=== PATIENT | male | born 1945 | race Caucasian/White ===

== ENCOUNTER 2022-10-31 14:32 | Outpatient (REF) | payer BC, SELFPAY ==
--- NOTE | ~2022-10-31 | XR_ITS ---
EXAMINATION: XR lumbar spine 2-3V CLINICAL INFORMATION: Reason for Exam PAIN. R/O DISC COMPARISON: None TECHNIQUE: 3 views of the lumbar spine FINDINGS: 5 nonrib-bearing lumbar-type vertebral bodies. Vertebral body heights are maintained. Alignment is maintained. Mild multilevel degenerative disc disease with loss of disc space height, facet arthropathy and disc osteophyte complexes. This is worst at L5/S1. Paravertebral soft tissues are unremarkable. XR/XR lumbar spine 2-3V IMPRESSION: Mild spondylosis of the lumbar spine, as above detailed. No significant spondylolisthesis.
--- NOTE | ~2022-10-31 | XR_ITS ---
EXAMINATION: XR HIP, RIGHT CLINICAL INFORMATION: Pain COMPARISON: None TECHNIQUE: Two views of the right hip. FINDINGS: Bones and soft tissues are normal. No fracture. Alignment is anatomic. Hip joint space is maintained. XR/XR hip RT min 2V IMPRESSION: Normal right hip.
== END 2022-10-31 14:33 | disposition home or self-care (01) ==
LOC: HO.RADIR 14:32
PROVIDERS: Visit Provider Internal Medicine
DX: M54.50 Low back pain, unspecified (principal); M25.551 Pain in right hip
CPT/HCPCS: 72100; 73502

== ENCOUNTER 2024-11-29 10:49 | Outpatient (AMB) | payer BC, SELFPAY ==
--- NOTE | 2024-11-29 11:05 | MHC.OFFVIS ---
Vital Signs 11/29/24 11:14 Height 5 ft 10 in Weight 157 lb BMI 22.5 BP 138/76 Blood Pressure Location Rt brachial Position Sitting Pulse 82 Intake Visit Reasons: skin lesion chest wall Intake Note: Patient referred by pcp Dr. Horan for skin lesion on chest. Present for 2m. Patient c/o: enlarging. Denies pain, oozing. Accompanied by: Self / Same As Patient Allergies No Known Allergies Allergy (Verified 11/29/24 11:06) Medication List - Last Reconciled 11/29/24 by Rosalio Urbina MD venlafaxine ER 75 mg PO BEDTIME HPI Comments Details: Patient was presents with a several month history of a right anterior chest wall growth. His increasing in size become more symptomatic. Patient was like to have it removed. No such lesions elsewhere. Chart was reviewed and patient evaluated [facility] Medical History (Updated 11/29/24 @ 11:08 by NJ Herndon) Hx of retinal detachment Cataract fragments in both eyes following surgery Surgical History (Updated 11/29/24 @ 11:39 by Rosalio Urbina MD) History of eye surgery Family History (Updated 11/29/24 @ 11:10 by NJ Herndon) Father Heart failure Mother Kidney failure Social History (Updated 11/29/24 @ 11:10 by NJ Herndon) Alcohol intake: never Patient Tobacco Use Status: Never used Tobacco Physical Exam Vital Signs: Last Vital Signs Pulse 82 11/29/24 11:14 BP 138/76 11/29/24 11:14 BMI result Body Mass Index 22.5 Chest Other: Patient has a roughly 4 x 3 cm mass consistent clinically with a keratoacanthoma Office Procedures Excision Details: Risks, benefits, alternatives of excision of right anterior chest wall mass reviewed with the patient included but not limited to bleeding, infection, recurrence, numbness, pain, scarring the patient wished to proceed. All questions answered. Consent signed. After appropriate positioning, patient underwent 1% lidocaine Betadine prep and a transverse by elliptical incision encompassing the lesion in question to grossly clear margins was uneventfully performed. Specimen side as noted above. Specimen sent to pathology. Wound was irrigated, secured hemostasis, and closed using running subcuticular 3-0 Vicryl suture followed by Steri-Strips and sterile dressings. Patient tolerated procedure well. 09407-rracg/arms/legs 3.1-4cm Procedure code (CPT) selection complete Office Meds lidocaine 1 %-epinephrine 1:100,000 injection solution Performing Provider: Rosalio Urbina MD Performing Location: [facility] [place] [facility] Administered by: Rosalio Urbina MD on 11/29/24 11:38 Dose Route Admin Location Dispensed Lot Number Expiration Date NDC Supervisor Rides 20 mL Infiltration 20 mL Assessment & Plan Assessment & Plan (1) Keratoacanthoma of skin: Code(s): L85.8 - Other specified epidermal thickening Category: Surgical Plan: Patient was been given local wound instructions including avoiding strenuous activities, ice to the wound periodically, Motrin for pain, may shower in 2 days removing only outside dressing, and will see me as directed or p.r.n.. All questions answered. Orders: Orders AMB Excision Today L85.8 - Other specified epidermal thickening Medications: New ibuprofen 800 mg PO Q8H PRN 30 tabs 0RF pain lidocaine-epinephrine 1 %-1:100,000 20 mL Infiltration ONCE 30 mL 0RF L85.8 - Other specified epidermal thickening Coding Level of Care Code New Pt Level 5 (19147) Diagnoses Keratoacanthoma of skin L85.8 CPT Codes Trunk/Arms/Legs - CPT: 40962-rmxcf/arms/legs 3.1-4cm ([id number])
[2024-11-29 11:14] VITALS: BP 138/76; PULSE 82; BMI 22.5
== END 2024-11-29 11:49 | disposition home or self-care (01) ==
PROVIDERS: PCP Internal Medicine; Visit Provider Surgery
DX: D21.3 Benign neoplasm of connective and other soft tissue of thorax (principal); L85.8 Other specified epidermal thickening
CPT/HCPCS: 11403; 99204

== ENCOUNTER 2024-11-29 10:49 | Outpatient (REF) | payer BC, SELFPAY | END 2024-11-29 10:50 | disposition home or self-care (01) | LOC: HO.LNP 10:49 | PROVIDERS: PCP Internal Medicine; Visit Provider Surgery | DX: L85.8 Other specified epidermal thickening (principal) | CPT/HCPCS: 11403; 88304; J2004 ==

== ENCOUNTER 2024-12-06 11:07 | Outpatient (AMB) | payer BC, SELFPAY ==
--- NOTE | 2024-12-06 11:08 | A.OFFVIS_ITS ---
Intake Visit Reasons: 1wk s/p Rt upper chest Intake Note: Patient here s/p WLE fibroma Rt upper chest. Reports incision healing well. Patient c/o: itch along incision. Denies pain, oozing. WLE: 11-29-24 Sales Agent Required: No Accompanied by: Self / Same As Patient Allergies No Known Allergies Allergy (Verified 12/06/24 11:10) HPI Comments Details: Patient was no wound issues or complaints. Pathology is benign. [facility] Medical History (Updated 11/29/24 @ 11:08 by NJ Herndon) Hx of retinal detachment Cataract fragments in both eyes following surgery Surgical History (Updated 12/06/24 @ 11:38 by Rosalio Urbina MD) History of eye surgery Family History (Updated 11/29/24 @ 11:10 by NJ Herndon) Father Heart failure Mother Kidney failure Social History (Updated 11/29/24 @ 11:10 by NJ Herndon) Alcohol intake: never Patient Tobacco Use Status: Never used Tobacco Physical Exam Chest Other: Incision clean dry and intact healing very well. Assessment & Plan Assessment & Plan (1) Visit for wound check: Code(s): Z51.89 - Encounter for other specified aftercare Category: Surgical Plan Patient was been given local instructions, and will otherwise follow-up p.r.n.. All questions answered. Coding Level of Care Code Global (00975) Diagnoses Visit for wound check Z51.89
== END 2024-12-06 11:19 | disposition home or self-care (01) ==
PROVIDERS: PCP Internal Medicine; Visit Provider Surgery
DX: Z51.89 Encounter for other specified aftercare (principal)
CPT/HCPCS: 99024

== ENCOUNTER → 2024-12-06 11:07 | Outpatient (BNVA) | payer BC, SELFPAY | PROVIDERS: PCP Internal Medicine; Visit Provider Surgery ==

== ENCOUNTER 2025-02-08 08:12 | Outpatient (REF) | payer MEDICARE, SELFPAY ==
--- NOTE | ~2025-02-08 | CT_ITS ---
EXAMINATION: CT SOFT TISSUE NECK WITH CONTRAST CLINICAL INFORMATION: Polypoid nasal cavity, deviated nasal septum. COMPARISON: None available. TECHNIQUE: Following the intravenous administration of 65 mL of Omnipaque 350 intravenous contrast, helical imaging was performed in the axial plane with generation of coronal and sagittal reformatted images. This CT examination was performed using dose optimization techniques as appropriate, variously including the following: *Automated exposure control *Adjustment of mA and/or kV according to patient size (this includes techniques or standardized protocols for targeted exams where dose is matched to indication/reason for exam; i.e. extremities or head) *Use of iterative reconstruction technique FINDINGS: Lymph Nodes: -No abnormal lymphadenopathy present in the anterior or posterior cervical chains. Carotid Sheath Structures: -Normal. Salivary Glands: -Normal. Tongue Base/Floor of Mouth: -Normal Mucosal Space: -Mild hypertrophy of the tonsillar pillar soft tissues, without enhancing mass present, likely reactive. -Mucosal space otherwise normal. No lesions evident. Visceral Space: -Thyroid gland: Diffusely enlarged, without discrete nodules seen. -Visceral space otherwise normal. Retropharangeal Space: - Normal. Parapharyngeal Fat Planes: -Normal. Pillow Filler Spaces: -Normal. Anterior Cervical Space: -Normal. Imaged Intracranial Contents: -No mass effect, edema, or abnormal enhancement. Cortical and dural venous sinuses are patent. The skull base is normal. Globes and Orbits: -There are bilateral lens replacements. Globes and orbital contents otherwise normal. Paranasal Sinuses/Mastoids/Tympanic Spaces: -Within the right anterior nasal cavity at the junction of the middle and inferior meatus, abutting the anterior septum, is a small polyp measuring 1.4 x 0.9 x 1.0 cm (AP, TRV, CC) (series 2, image 38). There is mild left nasal septal deviation without spurring. There is a large aerated anna bullosa in the right middle turbinate. Nasal cavity is otherwise well pneumatized. -Minimal polypoid mucosal thickening in the dependent left maxillary sinus. Paranasal sinuses, mastoid air cells, and tympanic spaces are otherwise well pneumatized. Lung Apices and Superior Mediastinal Structures: -There is a 3 mm subpleural nodule in the right lateral upper lobe (series 6, image 114). Lung apices are otherwise clear bilaterally. Superior mediastinal structures are normal. Bony Structures: -No suspicious bone lesions. No fractures. -Normal-appearing TM joints. -There are maxillary dental implants in place. -Advanced degenerative changes of the cervical spine with severe disc space degeneration spanning C2-T1. No acute bony abnormalities identified. CT/CT soft tissue neck w IV con IMPRESSION: 1. Small nasal polyp measuring 1.4 x 0.9 x 1.0 cm in the anterior nasal cavity at the junction of the middle and inferior meati. 2. No significant paranasal sinus disease. Leftward nasal septal deviation without spurring. 3. Mild global thyroid enlargement without discrete nodules seen by CT. 4. No mass or lymphadenopathy within the neck. 5. There is a 3 mm subpleural nodule in the lateral right upper lobe, nonspecific. One-year follow-up recommended only in a high-risk patient. 6. Severe degenerative spondylosis of the cervical spine. Electronically signed by: Shayan Willett MD 02/08/2025 10:32 AM EDT
--- NOTE | ~2025-02-08 | CT_ITS ---
EXAMINATION: CT SINUS WITHOUT CONTRAST CLINICAL INFORMATION: Deviated nasal septum. Polyps of the nasal cavity. COMPARISON: None available. TECHNIQUE: Contiguous axial images through the paranasal sinuses using 2 mm collimation with bone and soft tissue algorithm. Sagittal and coronal reformatted images acquired. This CT examination was performed using dose optimization techniques as appropriate, variously including the following: *Automated exposure control *Adjustment of mA and/or kV according to patient size (this includes techniques or standardized protocols for targeted exams where dose is matched to indication/reason for exam; i.e. extremities or head) *Use of iterative reconstruction technique DLP: 104 mGy centimeter. FINDINGS: Residual IV contrast from the recent CT soft tissue neck. There is a 15 x 10 x 15 mm polypoid soft tissue attenuation extending from the anterior inferior right middle turbinate into the right nasal cavity and abutting the nasal septum and the inferior turbinate. There is a S-shaped nasal septum deviation. There is likely an old deformity of the nasal bones. There is narrowing of nasal questionable/no central mostly on the left side. There is a anna bullosa, right middle turbinate. The paranasal sinuses are well pneumatized. There is mild mucosal thickening, right frontal ethmoid recess, ethmoid air cells and maxillary sinuses. Small retention cysts versus polyp in the anterior inferior left maxillary sinus. No air-fluid levels. The orbits are intact. No masses or fluid collections in the intraconal or extraconal compartments of the orbits. The extraocular muscles are intact. The eyeballs are intact demonstrated status post intraocular lens surgery. The cribriform plate, frontal nasal fovea are intact. The ethmoid artery notch is incomplete fused. No pneumatization of the anterior clinoid processes. No Onodi cell. The intrasinus septum, sphenoid, inserts midline. The cardiac canals are intact. The foramen rotundum and foramen ovale are intact. There is a vidian canal type II, bilaterally. Pneumatization of the left pterygoid recess. Multiple dental implants, maxillary. Tympanic cavities and mastoid cells are aerated. Pneumatized left petrous apex, congenital. Spondylosis C3 and C3-4 levels. Prominent palatine tonsils without abscess. Small accessory parotid glands, bilaterally. CT/CT sinus wo IV con IMPRESSION: 15 x 10 x 15 mm polypoid soft tissue extending from the anterior inferior right middle turbinate into the nasal cavity. Definitive diagnosis by tissue sampling. Mild chronic paranasal sinus disease. Small retention cyst, left maxillary sinus. Probable old traumatic deformity, nasal bones with incomplete narrowing of the nasal nostril/vestibule. S-shaped nasal septal deviation. Electronically signed by: Arthur Potts MD 02/08/2025 10:51 AM EDT
[2025-02-08 08:41] LABS: Blood Urea Nitrogen 40 mg/dL (9-16); Estimated Glomerular Filt Rate > 60
[2025-02-08] MEDS: iohexoL 350 MG/ML 100 ML INFUS..BTL 65 ML IV (10:10)
[2025-02-08 12:45] LABS: Creatinine POC 0.7 mg/dL (0.5-1.4); GFR POC > 60
== END 2025-02-08 08:13 | disposition home or self-care (01) ==
LOC: HO.CT 08:12
PROVIDERS: PCP Internal Medicine; Visit Provider Otolaryngology
DX: R22.1 Localized swelling, mass and lump, neck (principal); J33.0 Polyp of nasal cavity; J34.2 Deviated nasal septum; D37.05 Neoplasm of uncertain behavior of pharynx
CPT/HCPCS: 36415; 70486; 70491; 82565; 84520; Q9967

== ENCOUNTER → 2025-02-08 08:25 | Outpatient (BNV) | payer MEDICARE, SELFPAY | PROVIDERS: PCP Internal Medicine; Visit Provider Radiology Diagnostic Radiology | DX: R91.1 Solitary pulmonary nodule (principal); J33.0 Polyp of nasal cavity | CPT/HCPCS: 70486; 70491 ==

== ENCOUNTER 2025-08-07 11:05 | Outpatient (AMB) | payer MEDICARE, SELFPAY ==
--- NOTE | 2025-08-07 11:17 | A.OFFPC_ITS ---
Vital Signs 08/07/25 11:24 Height 5 ft 9.29 in Weight 156 lb BMI 22.8 BP 130/63 Blood Pressure Location Rt brachial Position Sitting Respiration 14 Pulse 86 Pulse Source Pulse Oximeter Temp 97.6 F Temp Source Temporal Artery Scan Pulse Oximetry (%) 96 Oxygen Delivery Method Room Air Intake Visit Reasons: Establish Care/Dr. Horan Mechanical Striper Required: No Accompanied by: Self / Same As Patient Allergies No Known Allergies Allergy (Verified 08/07/25 11:18) Tobacco use date assessed: 08/07/25 Fall risk assessment: No Falls in past year Last assessed Fall Risk: 08/07/25 Dental Screening Dental Screen Date: 08/07/25 Did you have a dental visit in the last 12 months?: Yes Did you have a dental problem in the last 6 months where you did not have access to dental care?: No Was dental information given to patient?: Patient has dentist (patient has dentures ) [facility] Medical History Hx of retinal detachment Cataract fragments in both eyes following surgery Surgical History History of eye surgery Family History Father Heart failure Mother Kidney failure Social History (Updated 08/07/25 @ 11:35 by NJ Hoang) Housing: House Alcohol intake: current Alcohol intake frequency: does not drink Patient Tobacco Use Status: Never used Tobacco service: No Current occupational status: employed Cognitive needs: No Hearing needs: Yes Vision needs: Yes (rx glasses) Questionnaire PHQ-9 Over the last 2 weeks, how often have you been bothered by any of the following problems? 1. Little interest or pleasure in doing things: not at all 2. Feeling down, depressed, or hopeless: not at all 3. Trouble falling or staying asleep, or sleeping too much: not at all 4. Feeling tired or having little energy: not at all 5. Poor appetite or overeating: not at all 6. Feeling bad about yourself - or that you are a failure or have let yourself or your family down: not at all 7. Trouble concentrating on things, such as reading the newspaper or watching television: not at all 8. Moving or speaking so slowly that other people could have noticed. Or the opposite - being so fidgety or restless that you have been moving around a lot more than usual: not at all 9. Thoughts that you would be better off or of hurting yourself in some way: not at all Total score: 0 Source: Developed by Drs. Nik Stauffer, Darby Marshall, Alexey Toure and colleagues, with an educational kevin from [facility]. Thrive Questionnaire Date Thrive assessed: 08/07/25 I am a: Patient What is your living situation today?: I have a steady place to live Within the past 12 months, did the food you bought not last and you didn't have the money to get more?: Never true Within the past 12 months, did you worry whether your food would run out before you got money to buy more?: Never true Do you have trouble paying for medicines?: No Do you have trouble getting transportation to medical appointments?: No Do you have trouble paying your heating and electricity bill?: No Do you have trouble taking care of your child, family member or friend?: No Do you have trouble with day-to-day activities such as bathing, preparing meals, shopping, managing finances, etc.?: No Are you currently unemployed and looking for a job?: No Are you interested in more education?: No Please select the resources that you would like help with: None THRIVE Score: 0 AUDIT C Alcohol Use Questionnaire (AUDIT-C) 1. How often do you have a drink containing alcohol?: Never 3. How often do you have six or more drinks on one occasion?: Never Total Score: 0 SADIE-7 AMB Questionnaire SADIE-7 Date SADIE - 7 assessed: 08/07/25 Feeling nervous, anxious, or on edge: 3 = Nearly every day Not being able to stop or control worryin = Nearly every day Worrying too much about different things: 3 = Nearly every day Trouble relaxin = Nearly every day Being so restless that it is hard to sit still: 0 = Not at all Becoming easily annoyed or irritable: 3 = Nearly every day Feeling afraid as if something awful might happen: 3 = Nearly every day Total SADIE-7 score (0-4 normal; 5-9 mild; 10-14 moderate; 15-21 severe): 18 Source: Developed by Drs. Nik Stauffer, Darby Marshall, Alexey Toure and colleagues, with an educational kevin from [facility]. Physical exam (Primary Care) Vital Signs: Last Vital Signs Temp 97.6 F 08/07/25 11:24 Pulse 86 08/07/25 11:24 Resp 14 08/07/25 11:24 BP 130/63 08/07/25 11:24 Pulse Ox 96 08/07/25 11:24 Oxygen Delivery Method Room Air 08/07/25 11:24 BMI result Body Mass Index 22.8 Tobacco/Smoking Status: Tobacco use Status Tobacco use date assessed 08/07/25 08/07/25 11:21 Patient Tobacco Use Status Never used Tobacco 08/07/25 11:35 PHQ-9: PHQ-9 Score PHQ-9: Total score 0 08/07/25 11:49 Thrive Assessment: Date of Thrive Assessment Date Thrive assessed 08/07/25 08/07/25 11:21 Office Procedures Flu Questionnaire Does the patient have a severe egg allergy?: No Does the patient have severe life threatening allergies?: No Does the patient have a fever or illness today?: No Has the patient ever had Guillain-[place] Syndrome?: No Has the patient ever had any past reaction to a flu shot?: No Immunizations Fluarix [id number] (PF) 45 mcg (15 mcg x 3)/0.5 mL IM syringe Performing Provider: Chalo Zaragoza MD [facility] [place] [facility] Documented (not given) by: NJ Hoang on 08/07/25 11:37 Reason Not Given: Received Previously Coding Level of Care Code New Pt Level 4 (60671) Complex EM visit Add On G2211 Diagnoses Annual physical exam Z00.00 Assessment & Plan Assessment & Plan (1) Annual physical exam: Code(s): Z00.00 - Encounter for general adult medical examination without abnormal findings Plan: History of Present Illness - The patient is a 80-year-old male presenting to [facility] care and discuss several health concerns. - He reports experiencing burning and dryness in his eyes every night. - He describes a new, intermittent, and irregular urine stream, characterized by occasional hesitancy and a weak flow. - The patient also has a history of chronic constipation and gas for many years, which is managed with Metamucil. - He denies seeing blood in his stool or urine, and a recent Cologuard test was normal. - A colonoscopy was performed a number of years ago. - The patient reports significant issues with frostbite on his hands and feet, consistent with Raynaud's phenomenon. - He had a severe case of frostbite on his feet years ago and was advised to wrap his feet in plastic wrap and wear two layers of socks for insulation, which he finds effective. - He uses expensive, triple-layer gloves for his hands, though he recently experienced skin discoloration after not wearing them in the cold. - He sees an ENT specialist for crystallized fluid in his ears, which causes nausea and dizziness, and takes meclizine as needed. - Current medications include venlafaxine 150 mg daily and lorazepam once daily for sleep, although it is prescribed for three times a day. - He received his flu and COVID-19 vaccines a month ago. 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. - Education: He holds a doctorate in education. - Transportation: He does not drive and uses Uber. Review of Systems - Eyes: Reports burning and dryness nightly. - Neurological: Reports occasional nausea and dizziness, attributed to fluid in the ears. - Gastrointestinal: Reports chronic constipation and gas; denies hematochezia. - Genitourinary: Reports intermittent urinary hesitancy and a weak stream; denies hematuria. - Musculoskeletal/Extremities: Reports frequent frostbite on hands and feet. Physical Exam General: Cooperative and healthy appearing Nutritional Appearance: Well nourished Orientation/consciousness: Patient oriented x3 Limitations: No limitations Head: Normal to inspection General: Appearance normal, both eyes and all related structures Neck: Normal visual inspection Chest: Normal palpation of entire chest wall Respiratory: N ormal respiratory effort Neurology: Patient oriented x3, reports limb problems consistent with Raynaud's phenomenon. Results - Cologuard: Recent test was normal. Plan - Labs: Ordered fasting blood work to check all parameters. - Dry Eyes: A prescription for eye drops will be sent to the pharmacy. - Lower Urinary Tract Symptoms: Will monitor. - Chronic Constipation: Patient to continue using Metamucil as needed. - Raynaud's Phenomenon: Advised patient to wear gloves for protection. - Medications: Venlafaxine 150 mg daily was renewed and sent to the pharmacy. - Medications: Lorazepam will be continued once daily at bedtime for sleep. - Medications: Meclizine will not be refilled at this time as the patient has an adequate supply. Discussion Notes I have reviewed the patient's concerns regarding dry eyes, urinary changes, constipation, and Raynaud's phenomenon. We discussed his current medications, and I have sent a renewal for venlafaxine. We agreed to continue lorazepam at his current dose of once daily for sleep. I will send a new prescription for his dry eyes. I have ordered fasting lab work and provided instructions on how to prepare and where to go. I advised him to continue protecting his hands from the cold to manage the Raynaud's symptoms. I have accepted him as a new patient in my practice. Patient Instructions - Please go for fasting blood work. - Do not eat anything after midnight the night before your blood test. - You may drink water, black coffee, or plain tea before the test. - The lab is located at [address] [place] [address] or at [facility]. - Continue taking venlafaxine 150 mg once daily; a refill has been sent to your pharmacy. - Take lorazepam once a day before you go to sleep. - Try the new prescription eye drops for your dry eyes. - Be sure to wear gloves when outside in the cold to protect your hands. Orders: Orders Influenza [id number] Immunization Today Z23 - Encounter for immunization Complete Blood Count no Diff Today Z00.00 - Encounter for general adult medical examination without abnormal findings Basic Metabolic Panel Today Z00.00 - Encounter for general adult medical examination without abnormal findings Prostate Specific Antigen Scr Today Z00.00 - Encounter for general adult medical examination without abnormal findings Thyroid Stimulating Hormone Today Z00.00 - Encounter for general adult medical examination without abnormal findings Liver Panel Today Z00.00 - Encounter for general adult medical examination without abnormal findings Lipid Panel Today Z00.00 - Encounter for general adult medical examination without abnormal findings Referrals Urology Referral R97.20 - Elevated prostate specific antigen [PSA] Medications: New venlafaxine ER 150 mg PO DAILY 90 caps 1RF olopatadine 0.1% separate doses by at least 6-8 hours 1 drp ophthalmic (eye) BID 5 mL 0RF meclizine 25 mg PO TID 30 tabs 0RF
[2025-08-07 11:24] VITALS: BP 130/63; PULSE 86; RESP 14; TEMP 36.4; O2SAT 96; BMI 22.8
--- OUTSIDE RECORDS SUMMARY | 2025-08-07 14:03 | XMS_ITS | Encounter Summary ---
Author Organization [facility] Address [address] [facility] [address] [place] [address] Phone Care Team Providers Care Goodwill Representative Name Role Phone Dean Horan MD Primary Care Provider [phone]- [phone] Encounter Details Date Type Department Care Team (Late st Contact Info) Description 03/13/2025 Procedure Pass [facility], [address] [address] Social History Tobacco Use Types Packs/Day Years Used Date Smoking Tobacco: Never Assessed Education Answer Date Recorded Are you interested in more education? Not on sheeba e 03/14/2025 Are you concerned about learning? Not on file 03/14/2025 No 03/14/2025 No 03/14/2025 Digital Access Answer Date Recorded No 03/14/2025 No 03/14/2025 Reliable internet access at home? Not on file 03/14/2025 Device with a working camera? Not on file Sex and Gender Information Value Date Recorded Sex Assigned at Not on file Legal Sex Male 6:30 PM EDT Gender Identity Not on file Sexual Orientation Not on file documented as of this encounter Plan of Treatment Not on file documented as of this encounter Visit Diagnoses Not on filedocumented in this encounter Care Teams Goodwill Representative Relationship Specialty Start Date End Date Dean Horan MD [address] [place] [address] PCP - General 07/15/19 documented as of this encounter Additional Source Comments The information contained in this document represents components of the legal health record. It is not the complete legal health record.[facility]
--- OUTSIDE RECORDS SUMMARY | 2025-08-07 14:03 | XMS_ITS | Encounter Summary ---
Author Organization [facility] Address [address] [facility] [address] [place] [address] Phone Care Team Providers Care Special Needs Bus Driver Name Role Phone Dean Horan MD Primary Care Provider [phone]- [phone] Reason for Referral * MRI/CAT Scan - Closed Specialty Diagnoses / Procedures Referred By Contac t Referred To Contact Radiology Diagnoses Dizziness and giddiness SNHL (sensory-neural hearing loss), asymmetrical Procedures MRI Brain CHG MRI BRAIN COMBO CHG MRI BRAIN CHG MRI BRAIN CONTRAST Nik Perea MD [address] [place] [address], [address] [address] Phone: tel: fax: [email or web address] Referral ID Status Reason Start Date Expiration Date Visits Re quested Visits Authorized [id number] Closed 03/14/2025 05/12/2025 1 1 Encounter Details Date Type Department Care Team (Latest Contact Info) Description 03/13/2025 Transcribe Orders Virtual Department [address] [place] [address] Nik Perea MD [address] [facility], [address] [place] [address] [email or web address] Dizziness and giddiness (Primary Dx) Social History Tobacco Use Types Packs/Day Years [...] on file documented as of this encounter Results * MRI BRAIN (INTERNAL AUDITORY CANAL) WITH AND WITHOUT CONTRAST (03/20/2025 10:43 AM EDT) Anatomical Region Laterality Modality Head Magnetic Resonan ce 03/21/2025 7:16 PM EDT Impressions 03/21/2025 9:31 PM EDT No retrocochlear pathology identified. Narrative 03/21/2025 9:31 PM EDT MRI BRAIN (INTERNAL AUDITORY CANAL) WITH AND WITHOUT CONTRAST Referring clinician's provided indication for this examination in [facility]: Outside Radiology Order; dizziness TECHNIQUE: Multi-sequence, multi-planar MRI of the brain including high resolution images of the temporal bones was performed before and after intravenous contrast. COMPARISON: None FINDINGS: Internal Auditory Canals, Cerebellopontine Angles, and Intracranial 7th and 8th Nerve Complexes: No cerebellopontine angle or internal auditory canal mass. No definite abnormal enhancement. Inner Ear Structures: Preserved signal in the labyrinth. No MRI evidence for an inner ear anomaly. No abnormal enhancement or abnormal intrinsic T1 hyperintensity. Brain Parenchyma: Mild scattered foci of T2/FLAIR hyperintensity in the white matter, likely a manifestation of chronic small vessel disease. Prominent susceptibility blooming abnormality in the left cerebellar hemisphere without enhancement, probably represents a benign chronic hemorrhagic lesion (such as a cavernoma, old hemorrhage, or old hemorrhagic infarct). A punctate focus of susceptibility present in the right centrum semiovale, likely an additional chronic microhemorrhage or cavernoma. No evidence of acute space-occupying hemorrhage. No evidence of acute or subacute infarct. No evidence of brain parenchymal mass. Ventricular System and Extra-Axial Spaces: No extra-axial fluid collections. Basal cisterns are patent. No hydrocephalus. Miscellaneous: Pneumatized right middle turbinate. Left maxillary sinus retention cyst. Procedure Note Con Walsh MD - 03/21/2025 MRI BRAIN (INTERNAL AUDITORY CANAL) WITH AND WITHOUT CONTRAST Referring clinician's provided indication for this examination in [facility]:Outside Radiology Order; dizziness TECHNIQUE: Multi-sequence, multi-planar MRI of the brain including highresolution images of the temporal bones was performed before and afterintravenous contrast. COMPARISON: None FINDINGS: Internal Auditory Canals, Cerebellopontine Angles, and Intracranial 7thand 8th Nerve Complexes: No cerebellopontine angle or internal auditorycanal mass. No definite abnormal enhancement. Inner Ear Structures: Preserved signal in the labyrinth. No MRI evidencefor an inner ear anomaly. No abnormal enhancement or abnormal intrinsic [id number]. Brain Parenchyma: Mild scattered foci of T2/FLAIR hyperintensity in thewhite matter, likely a manifestation of chronic small vessel disease.Prominent susceptibility blooming abnormality in the left cerebellarhemisphere without enhancement, probably represents a benign chronichemorrhagic lesion (such as a cavernoma, old hemorrhage, or oldhemorrhagic infarct). A punctate focus of susceptibility present in theright centrum semiovale, likely an additional chronic microhemorrhage orcavernoma. No evidence of acute space-occupying hemorrhage. No evidence ofacute or subacute infarct. No evidence of brain parenchymal mass. Ventricular System and Extra-Axial Spaces: No extra-axial fluidcollections. Basal cisterns are patent. No hydrocephalus. Miscellaneous: Pneumatized right middle turbinate. Left maxillary sinusretention cyst. IMPRESSION: No retrocochlear pathology identified. Nik Perea MD IMG MR HEAD/NECK Final Re sult documented in this encounter Visit Diagnoses Diagnosis Dizziness and giddiness- Primary Dizziness and giddiness documented in this encounter Care Teams Special Needs Bus Driver Relationship Specialty Start Date End Date Dean Horan MD [address] [place] [address] PCP - General 07/15/19 documented as of this encounter Additional Source Comments The information contained in this document represents components of the legal health record. It is not the complete legal health record.[facility]
--- OUTSIDE RECORDS SUMMARY | 2025-08-07 14:03 | XMS_ITS | Data Portability ---
Author Organization [place] [facility] Address [address] [address] Care Team Providers Care Accounts Payable Lead Name Role Phone LYNN MOTLEY Primary Care Provider Assessment No assessment recorded. Plan of Treatment Reminders Order Date Submit Date Provider Last Modified By Organization Details Last Modified Time Details Appointments Establish ed 30 2025 10:00A M JESSICA Carrasco MD Not available Not available Not available Lab None recorded. Referral None recorded. Procedures None recorded. Surgeries None recorded. Imaging MRI, brain + internal auditory canal, w/wo contrast - MRI, BRAIN + INTERNAL AUDITORY CANAL, W/WO CONTRAST 2024 025 [facility], [address] [place] [address], [address], 03/21/2025 21:36:54 Medication Orders None recorded. Patient TargetsNo targets recorded. Patient InstructionsNo instructions recorded. Reason for Referral None Reported. Results Created Date Observation Date Name Description Value Unit Range Abnormal Flag Note LastModifiedBy Organization Detail LastModifiedTime 02/23/2012/12/2024 audio gram No observ ation record ed. [email or web address] [place] [address] Dr Montaño, MARQUISE Bull, [address], 03/13/2025 09:35:34 02/23/20 25 02/08/2025 CT, neck, soft tissu e, w/ contr ast No observ ation record ed. [email or web address] [place] [address] Dr Montaño, MARQUISE Bull, [address], 03/13/2025 09:35:55 02/23/20 25 02/08/2025 CT, sinus es, w/o contr ast No observ ation record ed. [email or web address] [address] Montaño, [place], [address], 03/13/2025 09:36:15 03/21/20 25 03/20/2025 MRI, brain + inter nal audit ory canal , w/wo contr ast No observ ation record ed. [address], [address], 03/23/2025 10:52:32 06/20/20 25 03/20/2025 MRI, brain + inter nal audit ory canal , w/wo contr ast No observ ation record ed. [email or web address] [facility] [address] [place] [address], [address], 06/20/2025 11:26:42 Result Notes None recorded. Problems Name Problem SNOMED Code Status Onset Date Resolution Date Notes Provider Name and Address Organization Details Recorded Time Dizziness and giddiness 611844598 Active 025 JESSICA Carrasco MD [address] [place] [address], [phone], [facility] 5 09:55:01 Polyp of nasal cavity and/or nasal sinus 160353033 Active 025 JESSICA Carrasco MD [address] [place] [address], [phone], [facility] 5 09:55:08 Bleeding from nose 319236494 Active 025 JESSICA Carrasco MD [address] [place] [address], [phone], [facility] - [facility] 5 09:55:13 Problem Notes None recorded. Procedures Surgical History Date Name Laterality Status Provider Name and Address Organization Details Recorded Time 5 JMSNasal/Sinus Endoscopy-DEBR IDEMENT__RIGHT __JMS completed JESSICA CRAWFORD MD [address] [facility],[address], [address], [place] - [facility] 06/19/2025 16:38:32 5 Epistaxis Simple Nasal Cautery Right completed JESSICA CRAWFORD MD 100 [facility],[address], [address], [place] - [facility] 03/13/2025 10:10:12 5 NasalEndoscopy _DP completed JESSICA CRAWFORD MD [address] [facility],[address], [address], [place] - [facility] 03/13/2025 09:55:49 Imaging Results None recorded. Procedure Notes None recorded. Medical Equipment None Reported. Vitals Date Recorded Body height Body mass index (BMI) Body weight Provider Name and Address Organization Details Last Updated DateTime 03/13/2025 177.8 cm 22.7 kg/m2 56208.59 g Gerry Carreon [place] [facility] 03/13/2025 09:32:21 Date Recorded Body height Body mass index (BMI) Body weight Provider Name and Address Organization Details Last Updated DateTime 06/19/2025 177.8 cm 23 kg/m2 86836.78 g Gerry Carreon [place] [facility] 06/19/2025 15:40:06 Social History Question Answer Notes LastModified by Organizat ion Details LastModified Time Tobacco Smoking Status Never Smoker Gerry monoey [place] - [facility] 03/13/2025 09:28:30 What Type Of Aircraft Hydraulic Equipment Mechanic Do You Use? None Information not available 03/13/2025 Do You Have Any Pets? Yes Information not available 03/13/2025 Are You Passively Exposed To Smoke? No Information not available 03/13/2025 Are There Any Smokers In Your House? No Information not available 03/13/2025 Sex: Unknown Functional Status Question Answer Note LastModified by Organization Details LastModified Time Do you use any illicit or recreational drugs? No Information not available 03/13/2025 Do you or have you ever used any other forms of tobacco or nicotine? No Information not available 03/13/2025 What is your level of alcohol consumption? None Information not available 03/13/2025 What type of noise exposure are you exposed to? noExposureToExcessiveNoise Infor mation not available 03/13/2025 Mental Status None recorded. Family History Nothing Reported. Medical History Condition Response Allergies/Hayfever Y Heart Problems N Anxiety Y Tonsil Infections N Emphysema N Migraines N Thyroid Problems N Depression Y COPD N Developmental Delay N Glaucoma N Nasal or Sinus Problems Y Anemia N Immune System Disorder N Anesthesia Complications N Heart Attack ([place]) N Other Skin Condition N Diabetes N Rhinitis N Bleeding Disorder Y Food Allergy N Hearing Loss N Arthritis Y Hyperlipidemia N Cancer N Stroke N Dementia N Nasal polyps Y Asthma N Sleep Disorder N High Cholesterol N GERD/Reflux N Headaches Y Fibromyalgia N Hypertension N Speech Delay N Kidney Disease N Past Encounters Encounter ID Performer Location Encounter Start Date Encounter Closed Date Diagnosis/Indication Diagnosis SNOMED-CT Code Diagnosis ICD10 Code Diagnosis IMO Codes Diagnosis Note [id number] JESSICA CRAWFORD MD [facility] [address] [address] 03/13/2025 09:15:31 03/13/2025 10:08:20 Dizziness and giddiness 501234054 R42 80063 His dizziness has improved but he has asymmetric hearing loss worse on the right side. I will obtain an MRI IAC to exclude retrocochl ear pathology. This may also visualize his unilateral right sided nasal polyp. We will have him follow-up to review. Polyp of n harrison cavity and/or nasal sinus 863152157 J33.9 07649 He has a unilateral polyp on the right. I discussed performing a biopsy at a future visit. He is more bothered by his epistaxis so we cauterized the right septum today. We will reassess his nasal polyp at the next visit. It was well seen on nasal endoscopy. It seems to be coming from the middle meatus. I was not able to see a polyp on the left side. The nasopharyn x was clear and there were no nasopharyn geal lesions. I will also request his CT sinus be put on [employer] so that I can view the images. Bleeding from nose 989[address] 6005 R04.0 2558 A vessel was seen in Little's area on exam which was amenable to silver nitrate nasal cautery. The was cauterized without complicati on after written consent. I discussed the risks, benefits, and alternativ es to control of epistaxis with chemical (silver nitrate) cautery including: Pain, septal perforatio n, scar formation in the nose, continued bleeding despite the procedure, and alteration in sense of smell. The patient and family understand the risks and like to proceed. We discussed the importance of nasal moisture preventing nosebleeds . Specifical ly we discussed using a saline spray daily, humidifier , and using vaseline with a finger at night applied to the septum. If there is an active bleed, I recommende d using Afrin and demonstrat ed applying pressure to the soft part of the nose. The patient understand s to not use Afrin if he does not have an active bleed. If there is continued bleeding I asked the patient to call and we will consider additional nasal cautery at follow up. [id number] JESSICA CRAWFORD MD [facility] on [address] [place] [phone] 06/19/2025 15:18:21 06/19/2025 16:34:24 Dizziness and giddiness [id number] R42 56010 stable recommend observatio n Polyp of n harrison cavity and/or nasal sinus 101281989 J33.9 14128 I performed a nasal endoscopic biopsy of the right nasal polyp today I personally reviewed his MRI which did not show any encephaloc tino. I would like to confirm this is a benign polyp. He is asymptomat ic and he is not interested in surgery unless it is absolutely necessary. He tolerated this well. Bleeding from nose 36240 6005 R04.0 2558 Recommend observatio n as he had not had no recent bleeding. Health Concerns Section Related Observation LastModified by Organization Detai ls LastModified Time None Recorded Concern Status LastModified by Organization Details LastModified Time None Recorded Advance Directives Directive None Recorded Payers Insurance Date Sequence Insurance Name Policy Number Policy Block Covered Member ID Block Member ID Guarantor Name 03/13/2025 1 [place] [employer] Ashish Chacon [id number] Ashish Fullereld 03/10/2025 1 [place] Ashish Fullereld [id number] Ashish Chacon 06/19/2025 1 [place]MED[place] PPO) [id number] Ashish Milian Ines [id number] Ashish Milian Ines 03/13/2025 1 [place] [id number] Ashish Milian Ines [id number] Ashish Milian Ines 03/03/2025 1 [place] Ashish Fullereld [id number] Ashish Milian Ines 03/13/2025 2 [place] Ashish Milian Ines [id number] Ashish Milian Ines Notes Date Note Type Note Provider Name and Address Organization Details Recorded Time 03/13/2025 text/html ROS as noted in the HPI He presented to Dr. Sow with dizziness. 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 His dizziness has become more mild. He is no longer having room spinning vertigo. A month ago he had room spinning vertigo for 15 minutes with vomiting. A CT sinus 02/08/25 was obtained which showed a right nasal polyp and anna bullosa. He reports bilateral frontal and bilateral maxillary sinus pressure. Mild opacification was also seen. He takes estela D every day. A lung nodules was also seen and he reports his PCP is following this up. He has had right epistaxis (3 episodes in the last week). He was cauterized by his PCP. He is not on blood thinners. JESSICA CRAWFORD MD [address] [place] [address], [place], [address], [facility] 03/13/2025 10:10:49 06/19/2025 text/html ROS as noted in the HPI He presented to Dr. Sow with dizziness. 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 His dizziness has become more mild. We obtained an MRI of the IAC with contrast which was negative for retrocochlear pathology. A CT sinus 02/08/25 was obtained which showed a right nasal polyp and anna bullosa. He reports bilateral frontal and bilateral maxillary sinus pressure. Mild opacification was also seen. He takes estela D every day. A lung nodules was also seen and he reports his PCP is following this up. He had epistaxis after the last visit and his primary care doctor did additional cautery and he has not had bleeding in weeks. JESSICA CRAWFORD MD [address] [place] [address], [place], [address], [facility] - [facility] 06/19/2025 16:40:36
--- OUTSIDE RECORDS SUMMARY | 2025-08-07 14:03 | XMS_ITS | Clinical Summary ---
Author Organization [facility] Address [address] [place] [address] Phone Care Team Providers Care Powerhouse Mechanic Name Role Phone Dean Horan MD Primary Care Provider +1- [phone] Social History Tobacco Use Types Packs/Day Years [...] on file Sexual Orientation Not on file Last Filed Vital Signs Vital Sign Reading Time Taken Comments Blood Pressure - - Pulse - - Temperature - - Respiratory Rate - - Oxygen Saturation - - Inhaled Oxygen Concentration - - Weight 71.7 kg (158 lb) 03/20/2025 9:24 AM EDT Height 177.8 cm (5' 10 ) 03/20/2025 9:24 AM EDT Body Mass Index 22.67 03/20/2025 9:24 AM EDT Plan of Treatment Not on file Medical Devices Not on file Insurance [place] REPLAC[place] MEDICARE PPO BLUE REPLACEMENT MEDICARE PPO BLUE REPLACEMENT MEDICARE PPO BLUE REPLACEMENT MEDICARE PPO BLUE REPLACEMENT MEDICARE PPO BLUE REPLACEMENT [place] [address] MEDICARE PPO BLUE REPLACEMENT [place] [place] [address] MEDICARE PPO BLUE REPLACEMENT Care Teams Powerhouse Mechanic Relationship Specialty Start Date End Date Dean Horan MD [address] [place] [address] PCP - General 07/15/19 Additional Source Comments The information contained in this document represents components of the legal health record. It is not the complete legal health record.[facility]
== END 2025-08-07 12:01 | disposition home or self-care (01) ==
LOC: HO.HMCSH 11:05
PROVIDERS: PCP Internal Medicine; Visit Provider Internal Medicine
DX: H04.129 Dry eye syndrome of unspecified lacrimal gland (principal); I00-I99 Diseases of the circulatory system; R39.12 Poor urinary stream

== ENCOUNTER → 2025-08-07 11:05 | Outpatient (BNVA) | payer MEDICARE, SELFPAY | PROVIDERS: PCP Internal Medicine; Visit Provider Internal Medicine | DX: Z00.00 Encounter for general adult medical examination without abnormal findings (principal); I73.00 Raynaud's syndrome without gangrene; R97.20 Elevated prostate specific antigen [PSA]; Z28.89 Immunization not carried out for other reason | CPT/HCPCS: 90471; 96127; 99202 ==